=== PATIENT | female | born 1990 | race Caucasian/White ===

== ENCOUNTER → 2018-04-14 20:04 | Observation (INO) ==
[2018-04-14 17:54] LABS: Basophils % 0.4 %; Eosinophils # 0.1 K/mcL (0.0-0.6); Eosinophils % 1.9 %; Hematocrit 30.8 % (35.3-44.9); Hemoglobin 9.8 g/dL (11.5-15.4); Immature Granulocytes % 0.7 % (0-4); Lymphocytes # 1.5 K/mcL (0.6-4.6); Lymphocytes % 22.3 %; Mean Corpuscular HGB Conc 31.8 g/dL (31.6-35.5); Mean Corpuscular Hemoglobin 26.7 pg (28.0-33.3); Mean Corpuscular Volume 83.9 fL (83.0-100.0); Mean Platelet Volume 11.3 fL (9.4-12.4); Monocytes # 0.4 K/mcL (0.0-1.3); Monocytes % 6.3 %; Neutrophils # 4.6 K/mcL (1.6-8.9); Platelet Count 163 K/mcL (140-400); Red Blood Count 3.67 M/mcL (3.82-4.97); Red Cell Distribution Width 15.2 % (11.5-14.5); Segmented Neutrophils % 68.4 %
[2018-04-14 18:16] LABS: Alanine Aminotransferase 9 Units/L (7-52); Aspartate Amino Transferase 12 Units/L (13-39); BUN/Creatinine Ratio 11 (6-26); Blood Urea Nitrogen 7 mg/dL (6-20); Estimated Average Glucose 120 mg/dl; Hemoglobin A1C 5.8 %; Lactate Dehydrogenase 151 Units/L (140-271); Uric Acid 5.7 mg/dL (2.3-7.6); eGFR For Non-African Americans > 60 (> 60)
[2018-04-14 18:22] LABS: Amphetamine Screen,Urine Negative ng/mL (Cutoff=1000); Barbiturate Screen,Urine Negative ng/mL (Cutoff=200); Benzodiazepines Screen,Urine Negative ng/mL (Cutoff=200); Cannabinoid Screen,Urine Negative ng/mL (Cutoff = 50); Cocaine Screen,Urine Negative ng/mL (Cutoff= 300); Opiate Screen,Urine Negative ng/mL (Cutoff=300); Phencyclidine Screen,Urine Negative ng/mL (Cutoff=25); Protein/Creatinine Ratio,Urine 0.5 mg/mg (0.00-0.20)
--- NOTE | 2018-04-14 19:45 | Discharge Summary ---
Date of Encounter: 04/14/18 Time of Encounter: 19:47 - Discharge Diagnosis (1) 36 weeks gestation of Priority: Primary Status: Acute Comments: admitted for observation for PIH evaluation POC discussed with Dr. Church (2) Elevated BP without diagnosis of hypertension Priority: Secondary Status: Acute Comments: BPs wnl PIH labs WNL labs, BPs, EFM and toco reviewed with Dr. Church. Dr. Church recommend discharge home with 24 hour urine. (3) NST (non-stress test) nonreactive Priority: Secondary Status: Acute Comments: FHr 125 bpm moderate variability +15x15 accels no decels noted. Cat. 1 tracing. (4) GDM (gestational diabetes mellitus) Priority: Secondary Status: Acute Comments: Patient noncompliant with accuchecks Hgb A1C today Qualifiers: Gestational diabetes mellitus control: diet-controlled Trimester: third trimester Qualified Code(s): O24.410 - Gestational diabetes mellitus in , diet controlled Data Procedures and tests throughout hospitalization: Laboratory Tests 04/14/18 04/14/18 04/14/18 17:40 17:40 17:40 WBC 6.7 RBC 3.67 L Hgb 9.8 L Hct 30.8 L MCV 83.9 MCH 26.7 L MCHC 31.8 RDW 15.2 H Plt Count 163 MPV 11.3 Immature Gran % 0.7 Seg Neutrophils % 68.4 Lymphocytes % 22.3 Monocytes % 6.3 Eosinophils % 1.9 Basophils % 0.4 Neutrophils # 4.6 Lymphocytes # 1.5 Monocytes # 0.4 Eosinophils # 0.1 Basophils # 0.0 BUN Creatinine Est GFR ( Amer) Est GFR (Non-Af Amer) BUN/Creatinine Ratio Est Mean Plasma Glucose Hemoglobin A1c Uric Acid AST ALT Lactate Dehydrogenase Urine Creatinine 299 Protein/Creatinin Ratio 0.50 H Urine Total Protein 148 H Urine Opiates Screen Negative Ur Barbiturates Screen Negative Ur Phencyclidine Scrn Negative Ur Amphetamines Screen Negative U Benzodiazepines Scrn Negative Urine Cocaine Screen Negative U Marijuana (THC) Screen Negative Ur Drug Screen Interp See Below 04/14/18 04/14/18 17:40 17:40 WBC RBC Hgb Hct MCV MCH MCHC RDW Plt Count MPV Immature Gran % Seg Neutrophils % Lymphocytes % Monocytes % Eosinophils % Basophils % Neutrophils # Lymphocytes # Monocytes # Eosinophils # Basophils # BUN 7 Creatinine 0.64 Est GFR ( Amer) > 60 Est GFR (Non-Af Amer) > 60 BUN/Creatinine Ratio 11 Est Mean Plasma Glucose 120 Hemoglobin A1c 5.8 H Uric Acid 5.7 AST 12 L ALT 9 Lactate Dehydrogenase 151 Urine Creatinine Protein/Creatinin Ratio Urine Total Protein Urine Opiates Screen Ur Barbiturates Screen Ur Phencyclidine Scrn Ur Amphetamines Screen U Benzodiazepines Scrn Urine Cocaine Screen U Marijuana (THC) Screen Ur Drug Screen Interp Labs on day of discharge: Labs from last 24 hours 04/14/18 04/14/18 04/14/18 17:40 17:40 17:40 WBC 6.7 RBC 3.67 L Hgb 9.8 L Hct 30.8 L MCV 83.9 MCH 26.7 L MCHC 31.8 RDW 15.2 H Plt Count 163 MPV 11.3 Immature Gran % 0.7 Seg Neutrophils % 68.4 Lymphocytes % 22.3 Monocytes % 6.3 Eosinophils % 1.9 Basophils % 0.4 Neutrophils # 4.6 Lymphocytes # 1.5 Monocytes # 0.4 Eosinophils # 0.1 Basophils # 0.0 BUN 7 Creatinine 0.64 Est GFR ( Amer) > 60 Est GFR (Non-Af Amer) > 60 BUN/Creatinine Ratio 11 Est Mean Plasma Glucose 120 Hemoglobin A1c 5.8 H Uric Acid 5.7 AST 12 L ALT 9 Lactate Dehydrogenase 151 Urine Creatinine Protein/Creatinin Ratio Urine Total Protein Urine Opiates Screen Ur Barbiturates Screen Ur Phencyclidine Scrn Ur Amphetamines Screen U Benzodiazepines Scrn Urine Cocaine Screen U Marijuana (THC) Screen Ur Drug Screen Interp 04/14/18 04/14/18 17:40 17:40 WBC RBC Hgb Hct MCV MCH MCHC RDW Plt Count MPV Immature Gran % Seg Neutrophils % Lymphocytes % Monocytes % Eosinophils % Basophils % Neutrophils # Lymphocytes # Monocytes # Eosinophils # Basophils # BUN Creatinine Est GFR ( Amer) Est GFR (Non-Af Amer) BUN/Creatinine Ratio Est Mean Plasma Glucose Hemoglobin A1c Uric Acid AST ALT Lactate Dehydrogenase Urine Creatinine 299 Protein/Creatinin Ratio 0.50 H Urine Total Protein 148 H Urine Opiates Screen Negative Ur Barbiturates Screen Negative Ur Phencyclidine Scrn Negative Ur Amphetamines Screen Negative U Benzodiazepines Scrn Negative Urine Cocaine Screen Negative U Marijuana (THC) Screen Negative Ur Drug Screen Interp See Below Date of admission: 04/14/18 16:58 Discharging clinician: Sonia Cat Anticipated date of discharge: 04/14/18 - Patient Status Disposition: Home, Self-Care Condition: Good Functional capacity at discharge: independent ambulation - Discharge Instructions Follow Up With: Thad Truong MD [Partnered Physician] - - Diet and Activity Activity: increase activity as tolerated Diet: regular diet 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 Patient has history of PTL/PTD at 35 weeks and on progestrone. Patient also has history o seizure disorder and GDM. Patient's GTT was 215 but she ofter forgets to get her BS. Patient denies WHITEHEAD, visual disturbances or epigastric pain. Patient reports +FM, denies contractions, LOF or VB. Time Attestation: Total time spent providing and/or coordinating discharge services: Exam - Constitutional General appearance IM: A&O X 3, pleasant, answers questions appropriately - Respiratory Respiratory exam: Present: CTAB - Cardiovascular Cardiovascular exam IM: Present: RRR, +S1, +S2 - GI/Abdominal GI/Abdominal exam IM: normal bowel sounds - Extremities Exam Extremities exam IM: Present: full ROM, normal capillary refill, normal inspection - Neurological Exam Neurological exam: alert, oriented X3, reflexes normal - Other Additional findings: FHR 125 bpm moderate variability +15x15 accels no decels noted CAt 1 tracing - VTE Reasons for not Prescribing Prophylaxis: Treatment not Indicated - Low risk for VTE
== END | disposition home or self-care (01) ==
LOC: 1NENULAB
PROVIDERS: ADMIT Advanced Practice Midwife; ATTEND Advanced Practice Midwife

== ENCOUNTER 2018-04-19 12:54 | Inpatient (IN) ==
[2018-04-19] MEDS ORDERED: Ondansetron 4 MG/2 ML VIAL IVP PRN ×2 (13:17→14:31)
[2018-04-19] MEDS ORDERED: Famotidine 20 MG/2 ML VIAL IVP PRN (13:17)
[2018-04-19] MEDS ORDERED: Naloxone 0.4 MG/ML INJ IVP PRN ×2 (13:17→14:31)
[2018-04-19] MEDS ORDERED: Metoclopramide 10 MG/2 ML VIAL IVP PRN (13:17)
[2018-04-19] MEDS ORDERED: *HR* Nalbuphine 10 MG/ML AMPUL IVP PRN (13:17)
[2018-04-19] MEDS ORDERED: Oxytocin 20 units/ LR 1000 mL 20 UNIT/1,000 ML BAG IVC SCH (13:30)
--- NOTE | 2018-04-19 14:20 | OB/GYN History & Physical ---
Date of Encounter: 04/19/18 Time of Encounter: 14:19 Assessment and Plan (1) Labor established Current visit: Yes Status: Acute Patient with 5 cm dilatation at 80% effacement. Contractions noted on FHM Moderate variability with accels at baseline 135 BPM. Bloodwork pending Consents and consults completed Continue with expected progression. (2) 36 weeks gestation of Current visit: No Status: Acute (3) GDM (gestational diabetes mellitus) Current visit: No Status: Acute Non-compliant with blood glucose monitoring No current medications Qualifiers: Gestational diabetes mellitus control: diet-controlled Trimester: third trimester Qualified Code(s): O24.410 - Gestational diabetes mellitus in , diet controlled History of Present Illness Chief complaint: 36 weeks gestation of HPI: Ms. Yarbrough is a 27 year old female at 36 w 6 d, arrived to the L&D floor with complaint of contractions since 0300 this morning. The patient denies vaginal bleeding or hoyos of fluids. Patient noted to have Hx of gestational diabetes with no medications only checking glucose throughout the day. The patient was last seen in office 6 days ago and noted to be dilated at 2 cm. Upon arrival to L&D she was noted to be at 4-5 cm dilated. Denies any other complaints at this time. Patient noted to have Hx of seizure disorder on no medications at this time. Past Med Surg Social Fam HX - Past Medical History Attestation: Yes The following information was validated with the patient. Source: patient, old records reviewed Medical history: diabetes (gestational), seizures Psychiatric history: anxiety - Past Surgical History Surgical History: cholecystectomy Additional surgical history: Eye surgery - Social History Smoking Status: Never smoker Smokeless Tobacco Status: No Alcohol use: none Drug use: none Current living situation: Home, With Family Activity Level: Independent ambulation - Family History Mother Living Status: Still Living Hx Family Cardiac Disorders: No Hx Family Respiratory Disorders: No Hx Family Cancer: No Hx Family GI Disorders: No Hx Family Genitourinary Disorders: No Hx Family Endocrine Disorder: No Hx Family Musculoskeletal Disorders: No Hx Family Neuromuscular Disorders: No Hx Family Neurologic Disorders: No Hx Family HEENT Disorders: No Hx Family Autoimmune Disorders: No Hx Family Reproductive Disorders: No Hx Family Psychosocial Disorders: No Hx Family Medical Disorders: No Obstetrical History - Pregnancies : 5 Para: 4 Livin - History/Complications History/Complications: Gestational Diabetes Hx of Seizure disorder, takes no medications Medications and Allergies Vit No.129/Iron/FA [ Tablet] 1 each PO DAILY 04/19/18 [History] Allergy/AdvReac Type Severity Reaction Status Date / Time No Known Allergies Allergy Verified 04/19/18 13:57 Review of System OB - Constitutional Constitutional ROS IM: no chills, no fever(s) - Nose, mouth, and throat Nose, mouth and throat: as per HPI - Cardiovascular Cardiovascular: no chest pain, no edema - Respiratory Respiratory: no cough, no dyspnea - Gastrointestinal Gastrointestinal: abdominal pain (contractions), no diarrhea, no nausea - Genitourinary Genitourinary: no abnormal vaginal bleeding, no dysuria - Muscloskeletal Musculoskeletal: no muscle cramps - Integumentary Integumentary: no rash - Neurological Nerological: no headache(s), no weakness Exam - Constitutional Constitutional: well developed, well nourished, no acute distress, obese - HEENT HEENT: PERRL - Neck Neck exam: full ROM - Lungs Respiratory exam: CTAB - Cardiovascular Cardiovascular exam: RRR, +S1, +S2 - Abdomen Abdomen: Present: gravid, non tender - Extremities Extremities exam: full ROM, normal capillary refill Deep Tendon Reflex Grade: 2+ Normal - Vulva Vulva: bilateral: normal - Vagina Vagina: Present: normal moisture - Cervix Dilation: 5 Effacement: 80 Station: -2 - Uterus Uterus exam: Present: enlarged, normal contour - Anus/Rectum Anus/Rectum: Present: normal perianal skin Results Result Diagrams: 04/19/18 14:00 04/19/18 15:22 All other labs normal. - VTE Reasons for not Prescribing Prophylaxis: Treatment not Indicated - Low risk for VTE - Attending Attestation I examined this patient and my medical decision-making was reviewed with the Resident Physician. I agree with the documented findings, disposition and treatment plan as described except to the extent set forth below. Angelo De La Cruz DO
--- NOTE | 2018-04-19 14:24 | Anesthesia Evaluation PreOp ---
Date of Encounter: 04/19/18 Time of Encounter: 14:19 - Past History Planned Operation: TOMI Cardiac History: HTN (with , does not take any medication for treatment.) Pulmonary History: Denies Any Significant HX [employer] History: Seizures (Hx) Other Medical History: GERD, Other (Gestational diabetes) Anesthesia History: No Prior Anesthetic Complications (lap cholecystectomy, multiple surgeries right eye), Past Anesthesia : Yes Alcohol Use: none Drug use: none Medications and Allergies Vit No.129/Iron/FA [ Tablet] 1 each PO DAILY 04/19/18 [History] Allergy/AdvReac Type Severity Reaction Status Date / Time No Known Allergies Allergy Verified 04/19/18 13:57 - Meds/Allergy Pre-op Review Medications Reviewed: Yes Allergies Reviewed: No Beta Blockers on Current Med List: No Anesthesia Exam BP 147/94 P 105 R 18 T 98.4 FHT 130s Weight: 121kg NPO (# of Hours): 14 solid food Pain Scale Used: Numeric (1 - 10) - HEENT Pupil (Motor): Pupils equal Mallampati: II Teeth: Normal - [employer] LOC: Oriented [employer] Motor: Normal RUE, Normal LUE, Normal RLE, Normal LLE, Normal Face [employer] Sensory: Normal: RUE, LUE, RLE, LLE, 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
[2018-04-19] MEDS: Ringers Solution, Lactated 1,000 ML IVC SCH ×2 (14:26→20:04)
[2018-04-19] MEDS ORDERED: *HR* FentaNYL (PF) 100 MCG/2 ML VIAL EP ONE (14:31)
[2018-04-19] MEDS ORDERED: *HR* Ropivacaine/PF 0.2% 20 ML VIAL EP ONE (14:31)
[2018-04-19] MEDS ORDERED: EPHEDrine 50 MG/ML VIAL IVP PRN (14:31)
[2018-04-19] MEDS ORDERED: Epidural Premix (fent/bupiv) 110 ML EP SCH (14:45)
[2018-04-19 14:48] LABS: Basophils % 0.3 %; Eosinophils % 0.4 %; Hematocrit 33.3 % (35.3-44.9); Hemoglobin 10.3 g/dL (11.5-15.4); Immature Granulocytes % 0.8 % (0-4); Lymphocytes # 1.5 K/mcL (0.6-4.6); Lymphocytes % 14.9 %; Mean Corpuscular HGB Conc 30.9 g/dL (31.6-35.5); Mean Corpuscular Hemoglobin 26.3 pg (28.0-33.3); Mean Corpuscular Volume 84.9 fL (83.0-100.0); Monocytes # 0.7 K/mcL (0.0-1.3); Monocytes % 6.5 %; Neutrophils # 7.7 K/mcL (1.6-8.9); Nucleated Red Blood Cells 0.2 /100 WBC (0); Platelet Count 152 K/mcL (140-400); Red Blood Count 3.92 M/mcL (3.82-4.97); Segmented Neutrophils % 77.1 %
[2018-04-19 15:18] LABS: Amphetamine Screen,Urine Negative ng/mL (Cutoff=1000); Barbiturate Screen,Urine Negative ng/mL (Cutoff=200); Benzodiazepines Screen,Urine Negative ng/mL (Cutoff=200); Cannabinoid Screen,Urine Negative ng/mL (Cutoff = 50); Cocaine Screen,Urine Negative ng/mL (Cutoff= 300); Opiate Screen,Urine Negative ng/mL (Cutoff=300); Phencyclidine Screen,Urine Negative ng/mL (Cutoff=25)
[2018-04-19] MEDS ORDERED: *HR* Labetalol 20 MG/4 ML SYRINGE IVP ONE ×4 (15:35→16:39)
--- NOTE | 2018-04-19 15:40 | OB Labor Progress Note ---
Date of Encounter: 04/19/18 Time of Encounter: 15:38 Labor Progress Note - Subjective Subjective: Pt states - Vital Signs Vital Signs: 147/94 180/95 177/105 169/94 182/100 - Cervix Cervix: 5/80/-2 - Heart Tones Heart Tones: 135/moderate/+accels - Interventions Interventions: admitted current expectant management will give labetalol for BP discussed POC with Dr. De La Cruz anticipate - Plan Physician notified: Yes Physician notified details: updated about BP and cervical exam
[2018-04-19 16:05] LABS: Lactate Dehydrogenase 207 Units/L (140-271); eGFR For Non-African Americans > 60 (> 60)
[2018-04-19 16:32] LABS: Alanine Aminotransferase 10 Units/L (7-52); Aspartate Amino Transferase 18 Units/L (13-39); BUN/Creatinine Ratio 15 (6-26); Blood Urea Nitrogen 11 mg/dL (6-20); Uric Acid 6.3 mg/dL (2.3-7.6)
--- NOTE | 2018-04-19 16:58 | OB Labor Progress Note ---
Date of Encounter: 04/19/18 Time of Encounter: 16:55 Labor Progress Note - Subjective Subjective: Patient states her contractions have spaced out, blood pressure is markedly elevated she is received 1 dose of labetalol 10 mg and just a subsequent dose of 20 mg. Did advise her blood pressure does not go down we might try hydralazine next and we cannot control blood pressure will start her on magnesium sulfate. Because she is under 37 weeks does not appear to be in labor we cannot physically start induction at this point. - Cervix Cervix: 5/80/-3 - Heart Tones Heart Tones: heart tones 140s reactive - Letcher Letcher: Contractions irregular difficult to olive picker due to body habitus - Interventions Interventions: We will continue to try and get patient blood pressure and to control with labetalol and hydralazine if we cannot stabilize will start Magnesium sulfate
[2018-04-19] MEDS ORDERED: Magnesium Sulfate 20 gm/500mL 20 GM/500 ML IV.SOLN IVC SCH (17:15)
--- NOTE | 2018-04-19 17:17 | OB Labor Progress Note ---
Date of Encounter: 04/19/18 Time of Encounter: 17:13 Labor Progress Note - Subjective Subjective: The patient states she doctor for 24 hour urine yesterday we tracked down the results today and it was 1555mg. Patient's elevated blood pressures and abnormal 24 urine we will proceed on and get patient delivered. We will start magnesium sulfate 4 g loading dose followed by 2 g an hour and then Pitocin patient's GBS status is negative we will not have to start antibiotics at this time - Interventions Interventions: We will get patient an epidural, will start magnesium sulfate for gram load and also by 2 g an hour followed by Pitocin planus dentist. Normal spontaneous vaginal delivery
[2018-04-19 17:25] LABS: Protein/Creatinine Ratio,Urine 2.39 mg/mg (0.00-0.20)
[2018-04-19] MEDS ORDERED: Lidocaine -MPF 1% 5 ML AMPUL ONE (17:25)
[2018-04-19] MEDS ORDERED: *HR* Ropivacaine/PF 0.2% 20 ML VIAL ONE (17:26)
[2018-04-19] MEDS ORDERED: *HR* FentaNYL (PF) 100 MCG/2 ML VIAL ONE (17:26)
[2018-04-19] MEDS ORDERED: Calcium Gluconate 1,000 MG/10 ML VIAL IVPB ONE (17:48)
--- NOTE | 2018-04-19 18:07 | Anesthesia Procedures ---
Addendum entered and electronically signed by Jam Fajardo CRNA 04/20/18 06:36: Infant A Delivery Date: 04/19/18 Infant Delivery Time: 21:28 Original Note: Date of Encounter: 04/19/18 Time of Encounter: 17:30 Procedures: Anesthesia - Epidural/Spinal Patient ID/Chart reviewed: Yes Patient examined: Yes OB Eval: Gestational age: 36.6 OB Eval: : 5 OB Eval: Hx Para: 4 OB Eval: Dilated at (cm): 5 OB Eval: Contractions: Non-stressed pattern Consent Obtained: Yes Supplemental Oxygen: None/Room Air Site Prep: Aseptic Technique, Sterile prep and drape, Povidone-Iodine 1% Patient position: upright Local Anesthetic: Lidocaine 1% Amount of Local Anesthetic used: 3 Touhy Needle Gauge: 18 Touhy Needle Depth (cm): 8 Catheter Depth at Skin (cm): 16 Test Dose (1.5% Lido + Epi): Volume given (mls): 3 Test Dose Result: Negative Loading Dose: Fentanyl (mcg): 100 Loading Dose: Other: Ropivicaine 0.2% 8ml Loading Dose Administered: Thru Catheter Infusion Med: 0.125% Bupivacaine w/ 2 mcg/ml Fentanyl Infusion Rate (mls/hr): [address]: Tegaderm, Tape Interspace Used: L4-L5 Loss of Resistance (ADONIS): Yes Blood: No CSF: No Paresthesia: No Procedure: TOMI placed 2nd pass in upright position without any immediate noted complications. Bolus administered and pump initiated. VSS and FHT stable throughout. Vitals + FHT's: 1730 BP 154/98 P 106 R 18 1800 BP 147/76 P 96 R 16 FHT 130s
--- NOTE | 2018-04-19 18:23 | OB Labor Progress Note ---
Date of Encounter: 04/19/18 Time of Encounter: 18:21 Labor Progress Note - Subjective Subjective: patient comfortable after her epidural BP has come down some - Cervix Cervix: 6/80/-1 AROM clear - Heart Tones Heart Tones: FHT's 140s reactive FSM placed - Harrison Harrison: IIUPC placed no contractions seen - Interventions Interventions: mag started and will start pitocin
--- NOTE | 2018-04-19 22:00 | OB/GYN Procedure Note ---
Delivery - Delivery Date: 04/19/18 Provider: Samuel De La Cruz Intrapartum events: abruption Delivery induction: AROM, oxytocin Delivery monitor: external FHT, external uterine, internal FHT, internal uterine Anesthesia: epidural Quantitated Blood Loss: 100 - Infant (s) A Delivery Date: 04/19/18 Delivery Time: 21:28 Presentation: vertex Position: KADE Route of delivery: Gender: Female Viability: Viable Pounds: 6 Ounces: 6 Weight Gram: 2.9 kg at 1 minute: 7 at 5 mins: 9 Shoulder Dystocia: not encountered Specimens collected: cord blood Placenta: spontaneous Cord: 3 umbilical vessels - Repair Episiotomy: none Laceration Description: None - Complications Delivery complications: none Delivery comments: Patient is a 27-year-old 5 para 3104 at 36-6/7 weeks' her vision presents labor and delivery complaining of contractions. Patient was having occasional contractions and was 5 cm on admission patient was noted to have elevated blood pressures. We observed the patient blood pressures continued to elevate states labs were ordered and IV labetalol was given. Patient's lab work came back with normal labs what we are waiting for the protein Creatine ratio patient mentioned she had turned in a 24 hour urine were able to find those results and it was 1555 mg. This was just yesterday during this time her protein creatinine ratio did come back was 2.9. Because we had to push IV labetalol 2 it was decided this time to go ahead and induce the patient due to preeclampsia. Patient did receive an epidural because she states she was last one she is ruptured and we had difficulty monitoring the patient so we needed internalize her. Blood pressure did come down initially with the epidural and magnesium sulfate was started. She was artificially ruptured and clear fluid noted and she was internalize. We did initially start Pitocin however patient having decelerations and the Pitocin was immediately turned off. Patient had the occasional variable decelerations occasional early decelerations so we did not see any repetitive late decelerations. Patient progressed rapidly to complete patient pushed once delivering a viable female in right occiput anterior presentation at 2127. There was no nuchal cord, no meconium, the was bulb suctioned on the abdomen. Apgars were 7 at 1 minute, 9 appointment, infant weight was 6 lbs. 6 oz. Placenta was then delivered spontaneously with the delivery of the placenta a large clot was noted to follow the placenta we did examine the placenta this time and she had a large hematoma on the backside suggested that she had started to approximate. Specimen was sent to pathology 3 vessel cord noted. Pharmacy Technician Instructor Dr. De La Cruz, anesthesia epidural, estimated blood loss 100 mL. Perineum cervix and vagina was visualized intact. She will be observed 2 hours before being taken the floor magnesium sulfate will be continued for 24 hours PIH labs and a magnesium level be ordered in the a.m. diet will be advanced patient's be maintained at 125 mL per hour - Disposition Mom disposition: stable in LDR disposition: stable in LDR
[2018-04-20] MEDS ORDERED: Measles/Mumps/Rubella Vacc 0.5 ML VIAL SQ PRN (00:42)
[2018-04-20] MEDS ORDERED: Oxytocin 20 units/ LR 1000 mL 20 UNIT/1,000 ML BAG IVC SCH (00:42)
[2018-04-20] MEDS ORDERED: Oxytocin 20 units/ LR 1000 mL 20 UNIT/1,000 ML BAG IVC ONE (00:42)
[2018-04-20] MEDS: Acetaminophen 325 MG TABLET PO PRN ×2 (01:24→07:56)
[2018-04-20] MEDS: Magnesium Sulfate 20 gm/500mL 20 GM/500 ML IV.SOLN IVC SCH ×2 (05:13→15:53)
[2018-04-20 06:58] LABS: Basophils % 0.3 %; Eosinophils % 0.4 %; Hematocrit 23.9 % (35.3-44.9); Immature Granulocytes % 0.4 % (0-4); Lymphocytes # 1.3 K/mcL (0.6-4.6); Lymphocytes % 17.4 %; Mean Corpuscular HGB Conc 31.8 g/dL (31.6-35.5); Mean Corpuscular Hemoglobin 26.9 pg (28.0-33.3); Mean Corpuscular Volume 84.5 fL (83.0-100.0); Mean Platelet Volume 11.8 fL (9.4-12.4); Monocytes # 0.4 K/mcL (0.0-1.3); Monocytes % 5.7 %; Neutrophils # 5.6 K/mcL (1.6-8.9); Platelet Count 156 K/mcL (140-400); Red Blood Count 2.83 M/mcL (3.82-4.97); Red Cell Distribution Width 16.3 % (11.5-14.5); Segmented Neutrophils % 75.8 %
[2018-04-20 06:59] LABS: Hemoglobin 7.6 g/dL (11.5-15.4)
[2018-04-20 07:16] LABS: Alanine Aminotransferase 9 Units/L (7-52); Aspartate Amino Transferase 15 Units/L (13-39); BUN/Creatinine Ratio 18 (6-26); Blood Urea Nitrogen 12 mg/dL (6-20); Lactate Dehydrogenase 192 Units/L (140-271); Magnesium 4.8 mg/dL (1.6-2.6); Uric Acid 6.1 mg/dL (2.3-7.6); eGFR For Non-African Americans > 60 (> 60)
[2018-04-20] MEDS: Prenatal Vit/FA 1 EACH TABLET PO SCH (07:56)
[2018-04-20] MEDS ORDERED: NON-FORMULARY MEDICATION 1 EACH EACH (Prenatal Vit No.129/Iron/Fa [Prenatal One Daily Tabl PO SCH (09:00)
[2018-04-20] MEDS ORDERED: *HR* Labetalol 20 MG/4 ML SYRINGE IVP STA (11:14)
[2018-04-20] MEDS: Ibuprofen 600 MG TABLET PO PRN ×2 (12:06→21:08)
--- NOTE | 2018-04-20 12:52 | OB/GYN Progress Note ---
Date of Encounter: 04/20/18 Time of Encounter: 12:49 - Assessment and Plan (1) Pre-eclampsia affecting puerperium Current Visit: Yes Status: Acute Continue Magnesium Sulfate until 24 hours PP. Hypertension currently controlled after an additional 20 mg IV labetalol. Continue to monitor closely. (2) Vaginal delivery Current Visit: Yes Status: Resolved Subjective - Subjective Principal diagnosis: pre-e for pre-eclampsia Interval history: Patient complains of headache. She denies visual changes or RUQ pain. She reports her bleeding has slowed down. Patient reports: appetite normal, pain well controlled, no nauseated [place]: doing well, in NICU Objective - Latest Vital Signs Latest vital signs: Vital Signs Temp Pulse Pulse Resp BP Pulse Ox 04/20/18 12:00 88 16 138/95 04/20/18 10:55 93 16 153/102 04/20/18 09:50 92 14 148/95 04/20/18 08:50 88 16 130/84 04/20/18 07:50 94 14 141/87 04/20/18 07:35 97.4 F L 94 14 141/87 96 04/20/18 06:52 88 15 140/94 04/20/18 06:44 97.9 F 88 15 140/94 97 04/20/18 05:40 97.5 F L 100 14 121/77 97 04/20/18 04:42 97.7 F 109 14 134/89 96 04/20/18 03:40 97.5 F L 99 16 128/85 96 04/20/18 02:35 97.8 F 107 107 15 143/101 97 04/20/18 01:35 97.7 F 92 92 14 135/89 96 04/20/18 00:35 97.4 F L 97 97 15 146/99 96 Intake and Output 04/19/18 04/20/18 04/20/18 23:59 07:59 15:59 Intake Total 0 / 0 1460 / 1460 Output Total 1950 / 1950 650 / 650 Balance 0 / 0 -490 / -490 -650 / -650 Intake: IV Fluids 0 / 0 Lactated Ringers 1,000 ML @ 125 0 / 0 mls/hr IVC .Q8H [facility] Rx#: [id number] Oral 960 / 960 Other 500 / 500 Output: Urine 1075 / 1075 650 / 650 Catheter 875 / 875 - Exam Chest: Normal S1, Normal S2 Extremities: Present: other (DTR's +3/4 with 3 beat clonus bilaterally), edema. Absent: tenderness Uterus: Present: normal, firm Uterus Position: 1 Finger Below Umbilicus - Labs Labs: Laboratory Results - last 24 hr 04/19/18 04/19/18 04/19/18 14:00 14:00 14:00 WBC 9.9 RBC 3.92 Hgb 10.3 L Hct 33.3 L MCV 84.9 MCH 26.3 L MCHC 30.9 L RDW 16.0 H Plt Count 152 MPV 12.0 Immature Gran % 0.8 Seg Neutrophils % 77.1 Lymphocytes % 14.9 Monocytes % 6.5 Eosinophils % 0.4 Basophils % 0.3 Neutrophils # 7.7 Lymphocytes # 1.5 Monocytes # 0.7 Eosinophils # 0.0 Basophils # 0.0 Nucleated RBCs/100 WBC 0.2 H BUN Creatinine Est GFR ( Amer) Est GFR (Non-Af Amer) BUN/Creatinine Ratio POC Glucose Uric Acid Magnesium AST ALT Lactate Dehydrogenase Urine Creatinine 279 Protein/Creatinin Ratio 2.39 H Urine Total Protein 668 H Urine Opiates Screen Negative Ur Barbiturates Screen Negative Ur Phencyclidine Scrn Negative Ur Amphetamines Screen Negative U Benzodiazepines Scrn Negative Urine Cocaine Screen Negative U Marijuana (THC) Screen Negative Ur Drug Screen Interp See Below 04/19/18 04/19/18 04/19/18 15:22 18:39 20:35 WBC RBC Hgb Hct MCV MCH MCHC RDW Plt Count MPV Immature Gran % Seg Neutrophils % Lymphocytes % Monocytes % Eosinophils % Basophils % Neutrophils # Lymphocytes # Monocytes # Eosinophils # Basophils # Nucleated RBCs/100 WBC BUN 11 Creatinine 0.72 Est GFR ( Amer) > 60 Est GFR (Non-Af Amer) > 60 BUN/Creatinine Ratio 15 POC Glucose 91 88 Uric Acid 6.3 Magnesium AST 18 ALT 10 Lactate Dehydrogenase 207 Urine Creatinine Protein/Creatinin Ratio Urine Total Protein Urine Opiates Screen Ur Barbiturates Screen Ur Phencyclidine Scrn Ur Amphetamines Screen U Benzodiazepines Scrn Urine Cocaine Screen U Marijuana (THC) Screen Ur Drug Screen Interp 04/20/18 04/20/18 06:33 06:33 WBC 7.4 RBC 2.83 L Hgb 7.6 L D Hct 23.9 L MCV 84.5 MCH 26.9 L MCHC 31.8 RDW 16.3 H Plt Count 156 MPV 11.8 Immature Gran % 0.4 Seg Neutrophils % 75.8 Lymphocytes % 17.4 Monocytes % 5.7 Eosinophils % 0.4 Basophils % 0.3 Neutrophils # 5.6 Lymphocytes # 1.3 Monocytes # 0.4 Eosinophils # 0.0 Basophils # 0.0 Nucleated RBCs/100 WBC BUN 12 Creatinine 0.67 Est GFR ( Amer) > 60 Est GFR (Non-Af Amer) > 60 BUN/Creatinine Ratio 18 POC Glucose Uric Acid 6.1 Magnesium 4.8 H AST 15 ALT 9 Lactate Dehydrogenase 192 Urine Creatinine Protein/Creatinin Ratio Urine Total Protein Urine Opiates Screen Ur Barbiturates Screen Ur Phencyclidine Scrn Ur Amphetamines Screen U Benzodiazepines Scrn Urine Cocaine Screen U Marijuana (THC) Screen Ur Drug Screen Interp
[2018-04-21 08:34] LABS: Basophils % 0.3 %; Eosinophils # 0.1 K/mcL (0.0-0.6); Eosinophils % 2.4 %; Hematocrit 23.2 % (35.3-44.9); Hemoglobin 7.1 g/dL (11.5-15.4); Immature Granulocytes % 1.7 % (0-4); Lymphocytes # 1.2 K/mcL (0.6-4.6); Lymphocytes % 20.5 %; Mean Corpuscular HGB Conc 30.6 g/dL (31.6-35.5); Mean Corpuscular Hemoglobin 26.5 pg (28.0-33.3); Mean Corpuscular Volume 86.6 fL (83.0-100.0); Mean Platelet Volume 11.4 fL (9.4-12.4); Monocytes # 0.4 K/mcL (0.0-1.3); Monocytes % 6.3 %; Neutrophils # 4.1 K/mcL (1.6-8.9); Nucleated Red Blood Cells 0.5 /100 WBC (0); Platelet Count 195 K/mcL (140-400); Red Blood Count 2.68 M/mcL (3.82-4.97); Red Cell Distribution Width 16.9 % (11.5-14.5); Segmented Neutrophils % 68.8 %
[2018-04-21 08:56] LABS: Aspartate Amino Transferase 13 Units/L (13-39); BUN/Creatinine Ratio 22 (6-26); Blood Urea Nitrogen 15 mg/dL (6-20); Lactate Dehydrogenase 196 Units/L (140-271); Uric Acid 5.7 mg/dL (2.3-7.6); eGFR For Non-African Americans > 60 (> 60)
[2018-04-21 09:17] LABS: Alanine Aminotransferase 9 Units/L (7-52)
[2018-04-21] MEDS: Ibuprofen 600 MG TABLET PO PRN (09:18)
[2018-04-21] MEDS: Prenatal Vit/FA 1 EACH TABLET PO SCH (09:18)
--- NOTE | 2018-04-21 09:30 | Discharge Summary ---
Date of Encounter: 04/21/18 Time of Encounter: 09:27 - Discharge Diagnosis (1) Pre-eclampsia affecting puerperium Priority: Secondary Status: Acute Comments: labs stable return for worsening s/sx (2) Vaginal delivery Priority: Primary Status: Resolved Comments: Feeling well Tolerating regular diet Pain well-controlled with by mouth pain meds Ambulating independently Voiding independently Lochia light Passing flatus, no BM yet Vital signs stable Discharge home today (3) anemia Priority: Secondary Status: Acute Comments: Continue iron twice daily for 2 months - Discharge Medications Prescriptions: Ibuprofen [Motrin] 600 mg PO Q6HR PRN #30 tablet PRN Reason: Pain Docusate [Colace] 100 mg PO BID #30 capsule Ferrous Sulfate 325 mg PO BID #60 tablet Home Medications: Vit No.129/Iron/FA [ One Daily Tablet] 1 each PO DAILY 04/19/18 [History] Acetaminophen [Tylenol] 650 mg PO Q6HR PRN tablet 04/21/18 [Rx] Docusate [Colace] 100 mg PO BID #30 capsule 04/21/18 [Rx] Ferrous Sulfate 325 mg PO BID #60 tablet 04/21/18 [Rx] Ibuprofen [Motrin] 600 mg PO Q6HR PRN #30 tablet 04/21/18 [Rx] Labetalol [Trandate] 200 mg PO BID tablet 04/21/18 [Rx] Allergies/Adverse Reactions: Allergy/AdvReac Type Severity Reaction Status Date / Time No Known Allergies Allergy Verified 04/19/18 13:57 Data Procedures and tests throughout hospitalization: Laboratory Tests 04/19/18 04/19/18 04/19/18 14:00 14:00 14:00 WBC 9.9 RBC 3.92 Hgb 10.3 L Hct 33.3 L MCV 84.9 MCH 26.3 L MCHC 30.9 L RDW 16.0 H Plt Count 152 MPV 12.0 Immature Gran % 0.8 Seg Neutrophils % 77.1 Lymphocytes % 14.9 Monocytes % 6.5 Eosinophils % 0.4 Basophils % 0.3 Neutrophils # 7.7 Lymphocytes # 1.5 Monocytes # 0.7 Eosinophils # 0.0 Basophils # 0.0 Nucleated RBCs/100 WBC 0.2 H BUN Creatinine Est GFR ( Amer) Est GFR (Non-Af Amer) BUN/Creatinine Ratio POC Glucose Uric Acid Magnesium AST ALT Lactate Dehydrogenase Urine Creatinine 279 Protein/Creatinin Ratio 2.39 H Urine Total Protein 668 H Urine Opiates Screen Negative Ur Barbiturates Screen Negative Ur Phencyclidine Scrn Negative Ur Amphetamines Screen Negative U Benzodiazepines Scrn Negative Urine Cocaine Screen Negative U Marijuana (THC) Screen Negative Ur Drug Screen Interp See Below 04/19/18 04/19/18 04/19/18 15:22 18:39 20:35 WBC RBC Hgb Hct MCV MCH MCHC RDW Plt Count MPV Immature Gran % Seg Neutrophils % Lymphocytes % Monocytes % Eosinophils % Basophils % Neutrophils # Lymphocytes # Monocytes # Eosinophils # Basophils # Nucleated RBCs/100 WBC BUN 11 Creatinine 0.72 Est GFR ( Amer) > 60 Est GFR (Non-Af Amer) > 60 BUN/Creatinine Ratio 15 POC Glucose 91 88 Uric Acid 6.3 Magnesium AST 18 ALT 10 Lactate Dehydrogenase 207 Urine Creatinine Protein/Creatinin Ratio Urine Total Protein Urine Opiates Screen Ur Barbiturates Screen Ur Phencyclidine Scrn Ur Amphetamines Screen U Benzodiazepines Scrn Urine Cocaine Screen U Marijuana (THC) Screen Ur Drug Screen Interp 04/20/18 04/20/18 04/21/18 06:33 06:33 08:05 WBC 7.4 5.9 RBC 2.83 L 2.68 L Hgb 7.6 L D 7.1 L Hct 23.9 L 23.2 L MCV 84.5 86.6 MCH 26.9 L 26.5 L MCHC 31.8 30.6 L RDW 16.3 H 16.9 H Plt Count 156 195 MPV 11.8 11.4 Immature Gran % 0.4 1.7 Seg Neutrophils % 75.8 68.8 Lymphocytes % 17.4 20.5 Monocytes % 5.7 6.3 Eosinophils % 0.4 2.4 Basophils % 0.3 0.3 Neutrophils # 5.6 4.1 Lymphocytes # 1.3 1.2 Monocytes # 0.4 0.4 Eosinophils # 0.0 0.1 Basophils # 0.0 0.0 Nucleated RBCs/100 WBC 0.5 H BUN 12 Creatinine 0.67 Est GFR ( Amer) > 60 Est GFR (Non-Af Amer) > 60 BUN/Creatinine Ratio 18 POC Glucose Uric Acid 6.1 Magnesium 4.8 H AST 15 ALT 9 Lactate Dehydrogenase 192 Urine Creatinine Protein/Creatinin Ratio Urine Total Protein Urine Opiates Screen Ur Barbiturates Screen Ur Phencyclidine Scrn Ur Amphetamines Screen U Benzodiazepines Scrn Urine Cocaine Screen U Marijuana (THC) Screen Ur Drug Screen Interp 04/21/18 08:05 WBC RBC Hgb Hct MCV MCH MCHC RDW Plt Count MPV Immature Gran % Seg Neutrophils % Lymphocytes % Monocytes % Eosinophils % Basophils % Neutrophils # Lymphocytes # Monocytes # Eosinophils # Basophils # Nucleated RBCs/100 WBC BUN 15 Creatinine 0.69 Est GFR ( Amer) > 60 Est GFR (Non-Af Amer) > 60 BUN/Creatinine Ratio 22 POC Glucose Uric Acid 5.7 Magnesium AST 13 ALT 9 Lactate Dehydrogenase 196 Urine Creatinine Protein/Creatinin Ratio Urine Total Protein Urine Opiates Screen Ur Barbiturates Screen Ur Phencyclidine Scrn Ur Amphetamines Screen U Benzodiazepines Scrn Urine Cocaine Screen U Marijuana (THC) Screen Ur Drug Screen Interp Labs on day of discharge: Labs from last 24 hours 04/21/18 04/21/18 08:05 08:05 WBC 5.9 RBC 2.68 L Hgb 7.1 L Hct 23.2 L MCV 86.6 MCH 26.5 L MCHC 30.6 L RDW 16.9 H Plt Count 195 MPV 11.4 Immature Gran % 1.7 Seg Neutrophils % 68.8 Lymphocytes % 20.5 Monocytes % 6.3 Eosinophils % 2.4 Basophils % 0.3 Neutrophils # 4.1 Lymphocytes # 1.2 Monocytes # 0.4 Eosinophils # 0.1 Basophils # 0.0 Nucleated RBCs/100 WBC 0.5 H BUN 15 Creatinine 0.69 Est GFR ( Amer) > 60 Est GFR (Non-Af Amer) > 60 BUN/Creatinine Ratio 22 Uric Acid 5.7 AST 13 ALT 9 Lactate Dehydrogenase 196 Date of admission: 04/19/18 12:54 Primary care physician: PCP NONE Consults: 04/20/18 00:42 Consult to Paid Search Specialist [CONS] Routine Comment: Vaginal delivery, consult needed Discharging clinician: Kacey Hooks Anticipated date of discharge: 04/21/18 - Patient Status Disposition: Home, Self-Care Condition: Good Functional capacity at discharge: independent ambulation Overall status at discharge: patient is progressing back to baseline - Discharge Instructions Follow Up With: NONE,PCP [Primary Care Provider] - Thad Truong MD [Partnered Physician] - - Diet and Activity Activity: increase activity as tolerated Diet: regular diet Hospital Course Procedures: Reason for admission: IUP - , ROM Delivery: Episiotomy: none Laceration: none Other procedures: none Discharge diagnosis: delivery, pre-eclampsia baby: female Time Attestation: Total time spent providing and/or coordinating discharge services: Time Spent: Less than 30 minutes Exam - Constitutional Vitals: Temp Pulse Resp BP Pulse Ox 97.7 F 98 16 111/79 97 04/21/18 01:00 04/21/18 01:00 04/21/18 01:00 04/21/18 01:00 04/21/18 01:00 General appearance IM: A&O X 3 - Respiratory Respiratory exam: Present: CTAB - Cardiovascular Cardiovascular exam IM: Present: RRR, +S1, +S2 - GI/Abdominal GI/Abdominal exam IM: normal bowel sounds, no peritoneal signs - Rectal Rectal exam: deferred - Uterine Tone: Firm Uterus Position: 1 Finger Below Umbilicus, Midline - Extremities Exam Extremities exam IM: Present: normal capillary refill, normal inspection, radial pulses palpable and symmetrical - Neurological Exam Neurological exam: alert, CN II-XII intact, normal gait, oriented X3, reflexes normal, no focal deficits, strengths equal and symetr throughout - Psychiatric Additional comments: Patient denies history of anxiety and depression. Signs and symptoms of depression discussed with patient and she verbalizes understanding of when to seek help.
[2018-04-21 09:53] VITALS: BP 130/90
== END 2018-04-21 13:30 | disposition home or self-care (01) | DRG 560 ==
LOC: 1NENULAB → OBSVTOIN 12:54 → 1NENUOBS 04-20 00:26
PROVIDERS: ADMIT Advanced Practice Midwife; ATTEND Advanced Practice Midwife